=== PATIENT | female | born 1960 | race Caucasian/White ===

== ENCOUNTER 2017-11-06 17:01 | Inpatient (IN) | payer MEDICAID ==
[~2017-11-06] VITALS: Ht 160 cm; Wt 86.2 kg
[2017-11-06 17:30] LABS: APPEARANCE CLEAR (CLEAR); BILIRUBIN NEGATIVE (NEGATIVE); COLOR YELLOW (YELLOW); GLUCOSE NEGATIVE (NEGATIVE); KETONE NEGATIVE (NEGATIVE); NITRITE NEGATIVE (NEGATIVE); PROTEIN NEGATIVE (NEGATIVE); SPECIFIC GRAVITY 1.025 (1.005-1.020); UROBILINOGEN NORMAL (NORMAL)
[2017-11-06 17:34] LABS: RED CELLS - URINE 0-5 /hpf (0-5); WHITE CELLS - URINE 0-5 /hpf (0-5)
[2017-11-06 17:35] LABS: BACTERIA FEW /hpf (NONE SEEN); MUCUS <1+ /lpf (NONE SEEN)
[2017-11-06 17:57] LABS: HEMATOCRIT 42.2 % (36.0-48.0); HEMOGLOBIN 14.1 g/dL (12-16); MCH 29.8 pg (26.0-34.0); MCHC 33.4 g/dL (31.0-37.0); MCV 89.2 fL (80.0-100.0); MEAN PLATELET VOLUME 10.8 fL (7.4-10.4); PLATELET COUNT 298 10x3/uL (130-400); RBC 4.73 10x6/uL (4.00-5.40); RDW 13.3 % (11.5-14.5); WBC 22.3 10x3/uL (4.8-10.8)
[2017-11-06 17:58] LABS: ALBUMIN 3.5 g/dL (3.4-5.0); ALKALINE PHOSPHATASE 148 U/L (46-116); ALT (SGPT) 98 U/L (10-68); BILIRUBIN - TOTAL 0.36 mg/dL (0.2-1.3); CALC OSMOLALITY 282 mosm/kg (275-300); CALCIUM 9.3 mg/dL (8.5-10.1); CARBON DIOXIDE 25.2 mmol/L (21.0-32.0); CHLORIDE - SERUM 104 mmol/L (98-107); CREATININE - SERUM 0.8 mg/dL (0.6-1.3); GLUCOSE 116 mg/dL (74-106); POTASSIUM - SERUM 3.4 mmol/L (3.5-5.1); PROTEIN - SERUM 8.2 g/dL (6.4-8.2); SODIUM 141 mmol/L (136-145); UREA NITROGEN 15 mg/dL (7-18); eGFR NON AFRICAN AMERICAN 78 mL/min (90-120)
[2017-11-06 18:01] LABS: AMYLASE - SERUM 54 U/L (25-115); LIPASE 119 U/L (73-393)
[2017-11-06 19:57] LABS: EOSINOPHILS 5 % (0-7); LYMPHOCYTES 9 % (15-50); MONOCYTES 6 % (2-11); NEUTROPHILS 80 % (40-80); PLATELET ESTIMATE NORMAL; ROULEAUX OCC
[2017-11-07] VITALS (9 sets, daily range): BP systolic 139–157; BP diastolic 63–79; Ht 160 cm; Wt 86.2 kg
[2017-11-08 04:29] VITALS: BP 137/77
[2017-11-08 05:15] LABS: BASOPHILS 0.3 % (0-2); EOSINOPHILS 5.3 % (0-7); HEMOGLOBIN 12.1 g/dL (12-16); IMMATURE GRANULOCYTES 0.5 % (0-5); LYMPHOCYTES 13.4 % (15-50); MCH 29.4 pg (26.0-34.0); MCHC 32.7 g/dL (31.0-37.0); MCV 89.8 fL (80.0-100.0); MEAN PLATELET VOLUME 10.7 fL (7.4-10.4); NEUTROPHILS 69.5 % (40-80); PLATELET COUNT 260 10x3/uL (130-400); RBC 4.12 10x6/uL (4.00-5.40); RDW 13.3 % (11.5-14.5); WBC 21.3 10x3/uL (4.8-10.8)
[2017-11-08 05:16] LABS: ALKALINE PHOSPHATASE 113 U/L (46-116); CALCIUM 8.3 mg/dL (8.5-10.1); CARBON DIOXIDE 27.1 mmol/L (21.0-32.0); CHLORIDE - SERUM 106 mmol/L (98-107); CREATININE - SERUM 0.7 mg/dL (0.6-1.3); GLUCOSE 99 mg/dL (74-106); MAGNESIUM - SERUM 1.9 mg/dL (1.8-2.4); PHOSPHOROUS 3.3 mg/dL (2.5-4.9); POTASSIUM - SERUM 3.3 mmol/L (3.5-5.1); PROTEIN - SERUM 6.6 g/dL (6.4-8.2); SODIUM 141 mmol/L (136-145); eGFR NON AFRICAN AMERICAN > 90 mL/min (90-120)
[2017-11-08 05:18] LABS: ALBUMIN 2.6 g/dL (3.4-5.0); ALT (SGPT) 46 U/L (10-68); CALC OSMOLALITY 278 mosm/kg (275-300); UREA NITROGEN 7 mg/dL (7-18)
[2017-11-08 08:40] VITALS: BP 147/78
[2017-11-08 12:36] VITALS: BP 152/83
[2017-11-08 16:56] VITALS: BP 156/80
[2017-11-08 20:27] VITALS: BP 146/79
[2017-11-09 00:22] VITALS: BP 173/73
[2017-11-09 06:48] LABS: BASOPHILS 0.6 % (0-2); EOSINOPHILS 10.8 % (0-7); HEMATOCRIT 37.9 % (36.0-48.0); HEMOGLOBIN 12.4 g/dL (12-16); LYMPHOCYTES 21.4 % (15-50); MCH 29.3 pg (26.0-34.0); MCHC 32.7 g/dL (31.0-37.0); MCV 89.6 fL (80.0-100.0); MEAN PLATELET VOLUME 10.9 fL (7.4-10.4); MONOCYTES 10.7 % (2-11); NEUTROPHILS 55.5 % (40-80); PLATELET COUNT 270 10x3/uL (130-400); RBC 4.23 10x6/uL (4.00-5.40); WBC 13.6 10x3/uL (4.8-10.8)
[2017-11-09 07:02] LABS: CALC OSMOLALITY 285 mosm/kg (275-300); CALCIUM 8.5 mg/dL (8.5-10.1); CHLORIDE - SERUM 108 mmol/L (98-107); CREATININE - SERUM 0.7 mg/dL (0.6-1.3); GLUCOSE 85 mg/dL (74-106); MAGNESIUM - SERUM 2.2 mg/dL (1.8-2.4); PHOSPHOROUS 3.3 mg/dL (2.5-4.9); SODIUM 145 mmol/L (136-145); UREA NITROGEN 6 mg/dL (7-18); eGFR NON AFRICAN AMERICAN > 90 mL/min (90-120)
[2017-11-09 07:03] LABS: POTASSIUM - SERUM 4.2 mmol/L (3.5-5.1)
[2017-11-09 08:26] VITALS: BP 153/77
[2017-11-09 12:00] VITALS: BP 149/81
[2017-11-09 16:14] VITALS: BP 153/82
[2017-11-09 21:12] VITALS: BP 179/87
[2017-11-10 06:13] LABS: BASOPHILS 0.6 % (0-2); EOSINOPHILS 8.7 % (0-7); HEMATOCRIT 37.9 % (36.0-48.0); HEMOGLOBIN 12.8 g/dL (12-16); IMMATURE GRANULOCYTES 1.3 % (0-5); LYMPHOCYTES 18.8 % (15-50); MCH 29.8 pg (26.0-34.0); MCHC 33.8 g/dL (31.0-37.0); MCV 88.1 fL (80.0-100.0); MEAN PLATELET VOLUME 10.2 fL (7.4-10.4); MONOCYTES 9.2 % (2-11); NEUTROPHILS 61.4 % (40-80); PLATELET COUNT 270 10x3/uL (130-400); WBC 12.7 10x3/uL (4.8-10.8)
[2017-11-10 08:38] VITALS: BP 158/83
[2017-11-10] MEDS ORDERED: FLAGYL250 MG PO (11:15)
[2017-11-10] MEDS ORDERED: VANCOMYCIN250 MG/51 PO (11:15)
[2017-11-10] MEDS ORDERED: FLORAJEN3 CAPS460 MG PO (11:16)
[2017-11-10] MEDS ORDERED: PEPCID20 MG PO (11:16)
[2017-11-10] MEDS ORDERED: LISINOPRIL10 MG PO (11:16)
== END 2017-11-10 14:26 | disposition home or self-care (01) | DRG 372 ==
LOC: D.ER 17:01 → D.MS 21:58
PROVIDERS: Emergency Medicine; Family Medicine; Internal Medicine Gastroenterology
DX: A04.72 Enterocolitis due to Clostridium difficile, not specified as recurrent (principal); K57.92 Diverticulitis of intestine, part unspecified, without perforation or abscess without bleeding; I10 Essential (primary) hypertension; E87.6 Hypokalemia; K21.9 Gastro-esophageal reflux disease without esophagitis

== ENCOUNTER → 2017-11-24 08:53 | Outpatient (CLI) | payer MEDICAID ==
[2017-11-07 12:52] VITALS: BMI 33.6
[~2017-11-24 08:53] MED LIST: FLAGYL250 MG PO; FLORAJEN3 CAPS460 MG PO; LISINOPRIL10 MG PO; PEPCID20 MG PO; VANCOMYCIN250 MG/51 PO
== END | disposition home or self-care (01) ==
LOC: D.LAB 08:53
DX: K52.9 Noninfective gastroenteritis and colitis, unspecified (principal)

== ENCOUNTER 2018-01-24 07:33 | Inpatient (IN) | payer MEDICAID ==
[~2018-01-24] VITALS: Ht 160 cm; Wt 80.7 kg
[2018-01-24 08:14] LABS: ALBUMIN 3.5 g/dL (3.4-5.0); ALKALINE PHOSPHATASE 102 U/L (46-116); ALT (SGPT) 25 U/L (10-68); AMYLASE - SERUM 28 U/L (25-115); BILIRUBIN - TOTAL 0.96 mg/dL (0.2-1.3); CALC OSMOLALITY 276 mosm/kg (275-300); CALCIUM 9.1 mg/dL (8.5-10.1); CARBON DIOXIDE 26.6 mmol/L (21.0-32.0); CHLORIDE - SERUM 102 mmol/L (98-107); CREATININE - SERUM 0.8 mg/dL (0.6-1.3); GLUCOSE 118 mg/dL (74-106); LIPASE 67 U/L (73-393); POTASSIUM - SERUM 3.4 mmol/L (3.5-5.1); PROTEIN - SERUM 8.3 g/dL (6.4-8.2); SODIUM 139 mmol/L (136-145); UREA NITROGEN 6 mg/dL (7-18); eGFR NON AFRICAN AMERICAN 78 mL/min (90-120)
[2018-01-24 08:15] LABS: HEMATOCRIT 45.9 % (36.0-48.0); HEMOGLOBIN 15.3 g/dL (12-16); MCH 30.2 pg (26.0-34.0); MCHC 33.3 g/dL (31.0-37.0); MCV 90.5 fL (80.0-100.0); MEAN PLATELET VOLUME 11.5 fL (7.4-10.4); PLATELET COUNT 353 10x3/uL (130-400); RBC 5.07 10x6/uL (4.00-5.40); RDW 15.4 % (11.5-14.5); WBC 21.4 10x3/uL (4.8-10.8)
[2018-01-24 08:51] LABS: EOSINOPHILS 3 % (0-7); LYMPHOCYTES 16 % (15-50); MONOCYTES 4 % (2-11); NEUTROPHILS 71 % (40-80); PLATELET ESTIMATE NORMAL
[2018-01-24 09:37] LABS: APPEARANCE CLEAR (CLEAR); BILIRUBIN NEGATIVE (NEGATIVE); COLOR DK YELLOW (YELLOW); GLUCOSE NEGATIVE (NEGATIVE); KETONE SMALL mg/dL (NEGATIVE); NITRITE NEGATIVE (NEGATIVE); PROTEIN 1+ mg/dL (NEGATIVE); UROBILINOGEN NORMAL (NORMAL)
[2018-01-24 09:38] LABS: WHITE CELLS - URINE 0-5 /hpf (0-5)
[2018-01-24 09:39] LABS: BACTERIA MODERATE /hpf (NONE SEEN); EPITHELIAL CELLS 0-5 /hpf (0-5); MUCUS >1+ /lpf (NONE SEEN); RED CELLS - URINE 0-5 /hpf (0-5)
[2018-01-24 09:45] VITALS: BP 154/062
[2018-01-24] MEDS ORDERED: ZESTRIL40 MG PO (12:12)
[2018-01-24 12:23] VITALS: BP 164/77
[2018-01-24 20:08] VITALS: BP 133/67
[2018-01-24 23:54] VITALS: BP 122/55
[2018-01-25 03:53] VITALS: BP 126/57
[2018-01-25 06:12] LABS: BASOPHILS 0.2 % (0-2); EOSINOPHILS 0.2 % (0-7); HEMATOCRIT 38.2 % (36.0-48.0); HEMOGLOBIN 12.6 g/dL (12-16); IMMATURE GRANULOCYTES 0.5 % (0-5); LYMPHOCYTES 5.1 % (15-50); MCH 29.4 pg (26.0-34.0); MCV 89.3 fL (80.0-100.0); MEAN PLATELET VOLUME 10.5 fL (7.4-10.4); MONOCYTES 9.6 % (2-11); NEUTROPHILS 84.4 % (40-80); PLATELET COUNT 291 10x3/uL (130-400); RBC 4.28 10x6/uL (4.00-5.40); WBC 25.9 10x3/uL (4.8-10.8)
[2018-01-25 06:13] LABS: ALKALINE PHOSPHATASE 73 U/L (46-116); BILIRUBIN - TOTAL 0.93 mg/dL (0.2-1.3); CALC OSMOLALITY 267 mosm/kg (275-300); CALCIUM 8.2 mg/dL (8.5-10.1); CARBON DIOXIDE 27.7 mmol/L (21.0-32.0); CHLORIDE - SERUM 101 mmol/L (98-107); CREATININE - SERUM 0.7 mg/dL (0.6-1.3); GLUCOSE 115 mg/dL (74-106); POTASSIUM - SERUM 3.4 mmol/L (3.5-5.1); PROTEIN - SERUM 6.5 g/dL (6.4-8.2); SODIUM 135 mmol/L (136-145); UREA NITROGEN 5 mg/dL (7-18); eGFR NON AFRICAN AMERICAN > 90 mL/min (90-120)
[2018-01-25 06:16] LABS: ALBUMIN 2.5 g/dL (3.4-5.0); ALT (SGPT) 14 U/L (10-68)
[2018-01-25 08:06] VITALS: BP 135/66
[2018-01-25 11:46] VITALS: BP 150/80
[2018-01-25 16:32] VITALS: BP 133/69
[2018-01-25 20:01] VITALS: BP 160/75
[2018-01-26 03:45] VITALS: BP 153/78
[2018-01-26 06:38] LABS: BASOPHILS 0.3 % (0-2); EOSINOPHILS 4.2 % (0-7); HEMATOCRIT 35.4 % (36.0-48.0); HEMOGLOBIN 11.7 g/dL (12-16); IMMATURE GRANULOCYTES 0.7 % (0-5); LYMPHOCYTES 7.3 % (15-50); MCHC 33.1 g/dL (31.0-37.0); MCV 87.6 fL (80.0-100.0); MEAN PLATELET VOLUME 10.3 fL (7.4-10.4); NEUTROPHILS 76.5 % (40-80); PLATELET COUNT 257 10x3/uL (130-400); RBC 4.04 10x6/uL (4.00-5.40); RDW 13.8 % (11.5-14.5); WBC 19.7 10x3/uL (4.8-10.8)
[2018-01-26 06:59] LABS: CALC OSMOLALITY 275 mosm/kg (275-300); CALCIUM 7.8 mg/dL (8.5-10.1); CARBON DIOXIDE 27.4 mmol/L (21.0-32.0); CHLORIDE - SERUM 103 mmol/L (98-107); GLUCOSE 101 mg/dL (74-106); SODIUM 140 mmol/L (136-145); UREA NITROGEN 5 mg/dL (7-18)
[2018-01-26 07:37] LABS: CREATININE - SERUM 0.5 mg/dL (0.6-1.3); eGFR NON AFRICAN AMERICAN > 90 mL/min (90-120)
[2018-01-26 07:39] LABS: POTASSIUM - SERUM 2.6 mmol/L (3.5-5.1)
[2018-01-26 09:07] VITALS: BP 145/75
[2018-01-26 13:59] VITALS: BP 139/74
[2018-01-26 15:04] VITALS: Ht 160 cm; Wt 80.7 kg
[2018-01-26 16:44] VITALS: BP 160/81
[2018-01-26 20:15] VITALS: BP 153/71
[2018-01-26 20:29] VITALS: BP 113/63
[2018-01-27 05:35] VITALS: BP 135/63
[2018-01-27 06:25] LABS: BASOPHILS 0.5 % (0-2); EOSINOPHILS 9.4 % (0-7); HEMATOCRIT 34.7 % (36.0-48.0); HEMOGLOBIN 11.6 g/dL (12-16); IMMATURE GRANULOCYTES 0.9 % (0-5); LYMPHOCYTES 13.4 % (15-50); MCH 29.1 pg (26.0-34.0); MCHC 33.4 g/dL (31.0-37.0); MEAN PLATELET VOLUME 10.3 fL (7.4-10.4); MONOCYTES 8.6 % (2-11); NEUTROPHILS 67.2 % (40-80); PLATELET COUNT 290 10x3/uL (130-400); RBC 3.99 10x6/uL (4.00-5.40); RDW 13.7 % (11.5-14.5); WBC 15.4 10x3/uL (4.8-10.8)
[2018-01-27 06:44] LABS: ALBUMIN 2.2 g/dL (3.4-5.0); ALKALINE PHOSPHATASE 70 U/L (46-116); ALT (SGPT) 16 U/L (10-68); CALC OSMOLALITY 273 mosm/kg (275-300); CALCIUM 7.8 mg/dL (8.5-10.1); CARBON DIOXIDE 26.1 mmol/L (21.0-32.0); CHLORIDE - SERUM 104 mmol/L (98-107); CREATININE - SERUM 0.5 mg/dL (0.6-1.3); GLUCOSE 85 mg/dL (74-106); PHOSPHOROUS 2.5 mg/dL (2.5-4.9); PROTEIN - SERUM 5.9 g/dL (6.4-8.2); SODIUM 139 mmol/L (136-145); UREA NITROGEN 5 mg/dL (7-18); eGFR NON AFRICAN AMERICAN > 90 mL/min (90-120)
[2018-01-27 09:05] VITALS: BP 151/71
[2018-01-27 11:57] VITALS: BP 164/68
[2018-01-27 16:53] VITALS: BP 165/81
[2018-01-27 20:00] VITALS: BP 172/85
[2018-01-28 03:27] VITALS: BP 144/82
[2018-01-28 05:08] LABS: BASOPHILS 0.5 % (0-2); EOSINOPHILS 8.3 % (0-7); HEMATOCRIT 34.7 % (36.0-48.0); HEMOGLOBIN 11.9 g/dL (12-16); IMMATURE GRANULOCYTES 1.8 % (0-5); LYMPHOCYTES 15.7 % (15-50); MCH 29.5 pg (26.0-34.0); MCHC 34.3 g/dL (31.0-37.0); MCV 85.9 fL (80.0-100.0); MEAN PLATELET VOLUME 9.9 fL (7.4-10.4); MONOCYTES 8.9 % (2-11); NEUTROPHILS 64.8 % (40-80); PLATELET COUNT 304 10x3/uL (130-400); RBC 4.04 10x6/uL (4.00-5.40); RDW 13.6 % (11.5-14.5); WBC 14.9 10x3/uL (4.8-10.8)
[2018-01-28 05:39] LABS: CALC OSMOLALITY 275 mosm/kg (275-300); CALCIUM 8.1 mg/dL (8.5-10.1); CARBON DIOXIDE 25.4 mmol/L (21.0-32.0); CHLORIDE - SERUM 105 mmol/L (98-107); CREATININE - SERUM 0.6 mg/dL (0.6-1.3); GLUCOSE 92 mg/dL (74-106); SODIUM 140 mmol/L (136-145); UREA NITROGEN 5 mg/dL (7-18); eGFR NON AFRICAN AMERICAN > 90 mL/min (90-120)
[2018-01-28 06:04] LABS: POTASSIUM - SERUM 2.7 mmol/L (3.5-5.1)
[2018-01-28 09:05] VITALS: BP 159/81
[2018-01-28 12:48] VITALS: BP 178/91
[2018-01-28 16:24] VITALS: BP 170/76
[2018-01-28 19:19] VITALS: BP 166/68
[2018-01-28 23:41] VITALS: BP 106/69
[2018-01-29 03:42] VITALS: BP 177/77
[2018-01-29 05:53] LABS: BASOPHILS 0.5 % (0-2); EOSINOPHILS 7.4 % (0-7); HEMATOCRIT 37.5 % (36.0-48.0); HEMOGLOBIN 12.8 g/dL (12-16); IMMATURE GRANULOCYTES 2.8 % (0-5); LYMPHOCYTES 20.1 % (15-50); MCH 29.6 pg (26.0-34.0); MCHC 34.1 g/dL (31.0-37.0); MCV 86.8 fL (80.0-100.0); MEAN PLATELET VOLUME 10.1 fL (7.4-10.4); MONOCYTES 7.7 % (2-11); NEUTROPHILS 61.5 % (40-80); RBC 4.32 10x6/uL (4.00-5.40); RDW 13.9 % (11.5-14.5); WBC 14.8 10x3/uL (4.8-10.8)
[2018-01-29 05:55] LABS: PLATELET COUNT 365 10x3/uL (130-400)
[2018-01-29 06:07] LABS: CALCIUM 8.8 mg/dL (8.5-10.1); CHLORIDE - SERUM 105 mmol/L (98-107); CREATININE - SERUM 0.6 mg/dL (0.6-1.3); GLUCOSE 89 mg/dL (74-106); SODIUM 141 mmol/L (136-145); eGFR NON AFRICAN AMERICAN > 90 mL/min (90-120)
[2018-01-29 06:14] LABS: CALC OSMOLALITY 276 mosm/kg (275-300); POTASSIUM - SERUM 3.8 mmol/L (3.5-5.1); UREA NITROGEN 3 mg/dL (7-18)
[2018-01-29 08:43] VITALS: BP 172/78
[2018-01-29 11:48] VITALS: BP 163/74
[2018-01-29 19:40] VITALS: BP 166/70
[2018-01-29 23:35] VITALS: BP 173/76
[2018-01-30 04:12] VITALS: BP 186/85
[2018-01-30 06:23] LABS: BASOPHILS 0.5 % (0-2); EOSINOPHILS 5.8 % (0-7); HEMATOCRIT 40.4 % (36.0-48.0); HEMOGLOBIN 13.6 g/dL (12-16); IMMATURE GRANULOCYTES 2.6 % (0-5); LYMPHOCYTES 14.9 % (15-50); MCH 29.4 pg (26.0-34.0); MCHC 33.7 g/dL (31.0-37.0); MCV 87.4 fL (80.0-100.0); MEAN PLATELET VOLUME 9.7 fL (7.4-10.4); NEUTROPHILS 68.2 % (40-80); PLATELET COUNT 334 10x3/uL (130-400); RBC 4.62 10x6/uL (4.00-5.40); RDW 13.9 % (11.5-14.5); WBC 16.6 10x3/uL (4.8-10.8)
[2018-01-30 06:52] LABS: CALC OSMOLALITY 276 mosm/kg (275-300); CALCIUM 8.9 mg/dL (8.5-10.1); CARBON DIOXIDE 26.3 mmol/L (21.0-32.0); CHLORIDE - SERUM 103 mmol/L (98-107); CREATININE - SERUM 0.6 mg/dL (0.6-1.3); GLUCOSE 88 mg/dL (74-106); POTASSIUM - SERUM 4.1 mmol/L (3.5-5.1); SODIUM 141 mmol/L (136-145); eGFR NON AFRICAN AMERICAN > 90 mL/min (90-120)
[2018-01-30 06:55] LABS: UREA NITROGEN 4 mg/dL (7-18)
[2018-01-30 09:36] VITALS: BP 162/85
[2018-01-30 15:03] VITALS: BP 161/72
[2018-01-30 18:07] VITALS: BP 145/91
[2018-01-30 21:17] VITALS: BP 129/70
[2018-01-31 04:50] VITALS: BP 115/57
[2018-01-31 07:22] LABS: ALBUMIN 2.7 g/dL (3.4-5.0); ALKALINE PHOSPHATASE 70 U/L (46-116); ALT (SGPT) 19 U/L (10-68); BILIRUBIN - TOTAL 0.25 mg/dL (0.2-1.3); CALC OSMOLALITY 277 mosm/kg (275-300); CALCIUM 8.7 mg/dL (8.5-10.1); CARBON DIOXIDE 30.5 mmol/L (21.0-32.0); CHLORIDE - SERUM 108 mmol/L (98-107); CREATININE - SERUM 0.6 mg/dL (0.6-1.3); GLUCOSE 101 mg/dL (74-106); POTASSIUM - SERUM 4.6 mmol/L (3.5-5.1); PROTEIN - SERUM 6.6 g/dL (6.4-8.2); SODIUM 141 mmol/L (136-145); UREA NITROGEN 5 mg/dL (7-18); eGFR NON AFRICAN AMERICAN > 90 mL/min (90-120)
[2018-01-31 09:27] VITALS: BP 143/84
[2018-01-31 14:07] VITALS: BP 125/77
[2018-01-31] MEDS ORDERED: VANCOMYCIN250 MG/51 PO (15:49)
[2018-01-31] MEDS ORDERED: NORVASC5 MG PO (15:49)
[2018-01-31] MEDS ORDERED: FLAGYL500 MG PO (15:49)
[2018-01-31] MEDS ORDERED: QUESTRAN PACK4 G/PKT PO (15:50)
[2018-01-31] MEDS ORDERED: FLORAJEN3 CAPS460 MG PO (15:50)
== END 2018-01-31 17:10 | disposition home or self-care (01) | DRG 372 ==
LOC: D.ER 07:33 → D.MS 11:31 → D.EDHOLD 11:31 → D.MS 11:46
PROVIDERS: Family Medicine; Internal Medicine Gastroenterology
DX: A04.71 Enterocolitis due to Clostridium difficile, recurrent (principal); K57.32 Diverticulitis of large intestine without perforation or abscess without bleeding; N39.0 Urinary tract infection, site not specified; I10 Essential (primary) hypertension; K21.9 Gastro-esophageal reflux disease without esophagitis; N28.89 Other specified disorders of kidney and ureter; E66.9 Obesity, unspecified; Z68.31 Body mass index [BMI] 31.0-31.9, adult; E87.6 Hypokalemia

== ENCOUNTER → 2018-02-06 11:59 | Outpatient (CLI) | payer MEDICAID ==
[2018-01-26 15:04] VITALS: BMI 31.5
[~2018-02-06 11:59] MED LIST changes: +FLAGYL500 MG PO; +NORVASC5 MG PO; +QUESTRAN PACK4 G/PKT PO; +ZESTRIL40 MG PO
[2018-02-06 12:18] LABS: BASOPHILS 0.7 % (0-2); EOSINOPHILS 1.8 % (0-7); HEMATOCRIT 42.4 % (36.0-48.0); HEMOGLOBIN 14.1 g/dL (12-16); IMMATURE GRANULOCYTES 0.5 % (0-5); LYMPHOCYTES 22.4 % (15-50); MCH 29.9 pg (26.0-34.0); MCHC 33.3 g/dL (31.0-37.0); MEAN PLATELET VOLUME 10.3 fL (7.4-10.4); MONOCYTES 10.6 % (2-11); PLATELET COUNT 387 10x3/uL (130-400); RBC 4.71 10x6/uL (4.00-5.40); RDW 14.5 % (11.5-14.5); WBC 14.7 10x3/uL (4.8-10.8)
[2018-02-06 12:49] LABS: CALC OSMOLALITY 280 mosm/kg (275-300); CALCIUM 8.9 mg/dL (8.5-10.1); CARBON DIOXIDE 30.1 mmol/L (21.0-32.0); CHLORIDE - SERUM 103 mmol/L (98-107); CREATININE - SERUM 0.7 mg/dL (0.6-1.3); GLUCOSE 94 mg/dL (74-106); POTASSIUM - SERUM 4.4 mmol/L (3.5-5.1); SODIUM 140 mmol/L (136-145); THYROID STIMULATING HORMONE 1.17 uIU/mL (0.36-3.74); UREA NITROGEN 17 mg/dL (7-18); eGFR NON AFRICAN AMERICAN > 90 mL/min (90-120)
== END | disposition home or self-care (01) ==
LOC: D.LAB 11:59
PROVIDERS: Family Medicine
DX: A04.8 Other specified bacterial intestinal infections (principal); R53.83 Other fatigue; R53.81 Other malaise; N28.89 Other specified disorders of kidney and ureter; I10 Essential (primary) hypertension; K21.9 Gastro-esophageal reflux disease without esophagitis; E87.6 Hypokalemia

== ENCOUNTER 2018-03-04 07:17 | Outpatient (CLI) | payer MEDICAID ==
[~2018-03-04] VITALS: Ht 160 cm; Wt 79.5 kg
[2018-03-04 07:40] LABS: BASOPHILS 0.4 % (0-2); EOSINOPHILS 3.2 % (0-7); HEMATOCRIT 40.5 % (36.0-48.0); HEMOGLOBIN 13.5 g/dL (12-16); IMMATURE GRANULOCYTES 0.2 % (0-5); LYMPHOCYTES 29.5 % (15-50); MCH 29.7 pg (26.0-34.0); MCHC 33.3 g/dL (31.0-37.0); MCV 89.2 fL (80.0-100.0); MEAN PLATELET VOLUME 10.3 fL (7.4-10.4); MONOCYTES 8.5 % (2-11); NEUTROPHILS 58.2 % (40-80); RBC 4.54 10x6/uL (4.00-5.40); RDW 14.1 % (11.5-14.5)
[2018-03-04 07:44] LABS: PLATELET COUNT 273 10x3/uL (130-400)
[2018-03-04 07:48] LABS: CALC OSMOLALITY 286 mosm/kg (275-300); CALCIUM 8.5 mg/dL (8.5-10.1); CHLORIDE - SERUM 107 mmol/L (98-107); CREATININE - SERUM 0.6 mg/dL (0.6-1.3); GLUCOSE 93 mg/dL (74-106); POTASSIUM - SERUM 3.6 mmol/L (3.5-5.1); SODIUM 144 mmol/L (136-145); UREA NITROGEN 12 mg/dL (7-18); eGFR NON AFRICAN AMERICAN > 90 mL/min (90-120)
[2018-03-04 07:53] LABS: APTT 32.3 SECONDS (22.8-39.4); INR 0.95 (0.85-1.17); PROTIME 12.3 SECONDS (11.6-15.0)
[2018-03-04] MEDS ORDERED: PEPCID20 MG PO (10:24)
[2018-03-04 10:29] VITALS: BP 154/79; Ht 160 cm; Wt 79.5 kg
== END 2018-03-04 15:40 | disposition home or self-care (01) ==
LOC: D.SP 07:17
PROVIDERS: Specialist
DX: N28.89 Other specified disorders of kidney and ureter (principal); Z01.812 Encounter for preprocedural laboratory examination

== ENCOUNTER → 2018-04-09 11:04 | Outpatient (CLI) | payer MEDICAID ==
[2018-03-04 10:29] VITALS: BMI 31.0
== END | disposition home or self-care (01) ==
LOC: D.CT 04-01 14:00
DX: C64.2 Malignant neoplasm of left kidney, except renal pelvis (principal)

== ENCOUNTER → 2018-06-23 17:34 | Outpatient (CLI) | payer MEDICAID ==
[2018-03-04 10:29] VITALS: BMI 31.0
== END | disposition home or self-care (01) ==
LOC: D.MAMMO 14:00
DX: Z12.31 Encounter for screening mammogram for malignant neoplasm of breast (principal)

== ENCOUNTER → 2018-07-03 15:27 | Outpatient (CLI) | payer MEDICAID ==
[2018-03-04 10:29] VITALS: BMI 31.0
== END | disposition home or self-care (01) ==
LOC: D.CT 07-01 15:30
DX: C64.9 Malignant neoplasm of unspecified kidney, except renal pelvis (principal)

== ENCOUNTER → 2018-07-28 13:23 | Outpatient (CLI) | payer MEDICAID ==
[2018-03-04 10:29] VITALS: BMI 31.0
== END | disposition home or self-care (01) ==
LOC: D.RAD 13:23
DX: R07.81 Pleurodynia (principal); R05 Cough

== ENCOUNTER → 2018-10-26 14:42 | Outpatient (CLI) | payer MEDICAID ==
[2018-03-04 10:29] VITALS: BMI 31.0
== END | disposition home or self-care (01) ==
LOC: D.CT 14:42
PROVIDERS: ATTEND Radiology Diagnostic Radiology
DX: C64.2 Malignant neoplasm of left kidney, except renal pelvis (principal)

== ENCOUNTER → 2019-02-09 14:35 | Outpatient (CLI) | payer MEDICAID ==
[2018-03-04 10:29] VITALS: BMI 31.0
== END | disposition home or self-care (01) ==
LOC: D.CT 14:35
PROVIDERS: ATTEND Radiology Diagnostic Radiology
DX: N28.89 Other specified disorders of kidney and ureter (principal)

== ENCOUNTER 2019-05-29 13:21 | Emergency (ER) | payer MEDICAID ==
[~2019-05-29] VITALS: Ht 160 cm; Wt 89.4 kg
[2019-05-29 13:31] VITALS: BP 139/83; Ht 160 cm; Wt 89.4 kg
== END 2019-05-29 16:02 | disposition home or self-care (01) ==
LOC: D.ER 13:21
DX: S61.411A Laceration without foreign body of right hand, initial encounter (principal); W25.XXXA Contact with sharp glass, initial encounter; Y93.9 Activity, unspecified; Y92.9 Unspecified place or not applicable; I10 Essential (primary) hypertension; J45.909 Unspecified asthma, uncomplicated

== ENCOUNTER → 2019-07-26 14:45 | Outpatient (CLI) | payer OTHER ==
[2019-05-29 13:31] VITALS: BMI 31.0
== END | disposition home or self-care (01) ==
LOC: D.CT 14:45
PROVIDERS: ATTEND Radiology Diagnostic Radiology
DX: C64.2 Malignant neoplasm of left kidney, except renal pelvis (principal)

== ENCOUNTER → 2019-09-14 16:24 | Outpatient (CLI) | payer OTHER ==
[2019-05-29 13:31] VITALS: BMI 31.0
== END | disposition home or self-care (01) ==
LOC: D.RAD 16:24
PROVIDERS: ATTEND Family Medicine
DX: M25.512 Pain in left shoulder (principal)

== ENCOUNTER → 2020-01-04 15:43 | Outpatient (CLI) | payer OTHER ==
[2019-05-29 13:31] VITALS: BMI 31.0
== END | disposition home or self-care (01) ==
LOC: D.CT 15:43
PROVIDERS: ATTEND Radiology Diagnostic Radiology
DX: C64.9 Malignant neoplasm of unspecified kidney, except renal pelvis (principal)